=== PATIENT | female | born 1970 ===

== ENCOUNTER → 2018-05-09 | Outpatient (CLI) | payer BC | LOC: GMAJ 11:20 | PROVIDERS: ATTEND Family Medicine | DX: Z00.00 Encounter for general adult medical examination without abnormal findings (principal) ==

== ENCOUNTER → 2018-05-12 | Outpatient (CLI) | payer BC ==
--- NOTE | 2018-05-13 08:48 | US ---
EXAM DESCRIPTION: Abdomen,Complete: Ultrasound. CLINICAL HISTORY: RUQ ABD PN COMPARISON: None Available. TECHNIQUE: Transabdominal scannin-dimensional and Doppler modes. FINDINGS: Gallbladder: Multiple gallstones with acoustic shadowing making it difficult to see the dependent aspect. Normal wall thickness 1.4 mm. No fluid around the wall. Nontender with transducer pressure.. Common bile duct: 6 mm caliber upper normal limits. Liver: Septated or multi compartment anechoic cyst in the right lobe of the liver near the dome and subcapsular, measuring 7.0 x 5.4 x 4.7 cm. Change axis right lobe 14 cm. Normal echogenicity. No intrahepatic biliary dilatation. Normal caliber of the portal vein with hepatopedal flow. Smooth capsule. Pancreas: Normal size and echogenicity. Duct not seen.. Abdominal aorta: Normal caliber from the proximal segment to the distal bifurcation. IVC: visualized; normal caliber. Spleen normal echogenicity; long axis measurement is 10.4 cm. Right kidney: 10.1 cm long axis. Midrenal cortical thickness 13 mm. Normal echogenicity. No hydronephrosis or perinephric edema.. Left kidney: 9.5 cm long axis. Midrenal cortical thickness 11 mm. Normal echogenicity and no hydronephrosis or perinephric edema.. IMPRESSION: 1. Cholelithiasis with no gallbladder wall thickening or tenderness. Common bile duct caliber upper normal limits. 2. Liver unremarkable except for 7 cm multicompartment or loculated cyst in the right lobe subcapsular dome. Normal duct size and vascularity. Smooth capsule with no ascites. Normal ultrasound of the pancreas. 3. Spleen and right kidney are unremarkable. Minimal thinning of the left renal cortex. Bilateral kidneys are negative for other findings. Electronically signed by: Davion Falcon MD 05/13/2018 8:47 AM ENTRY DRIVER OPERATOR
--- NOTE | 2018-05-13 08:58 | US ---
EXAM DESCRIPTION: Pelvic,Non-OB CLINICAL HISTORY: INTRA-ABD AND PELVIC SWELLING, MASS AND LUMP. LMP unknown. COMPARISON: Ultrasound abdomen on the same visit. TECHNIQUE: Transcutaneous scanning through the urine filled bladder. Endovaginal scanning. Broussard-scale and Doppler modes. FINDINGS: Uterus 14.6 x 10.7 x 8.2. cm. Endometrial thickness 12 mm. The myometrium appears heterogeneous. Large hypoechoic mass on the right measuring 12.3 x 5.0 x 8.4 cm. Second heterogeneous mass measures 1.5 x 1.3 x 0.9 cm. The uterus is not retroverted. Cervix unremarkable. Cul-de-sac contains trace fluid. Right ovary 2.3 x 2.3 x 1.7 cm. Estimated volume. Normal waveform and color Doppler vascularity. No follicles or cysts. No adnexal mass or free fluid. Left ovary 2.6 x 1.7 x 1.5 cm. Normal waveform and color Doppler vascularity. 1.5 cm follicle, no cysts. No adnexal mass or free fluid. IMPRESSION: 1. Markedly enlarged uterus in normal position. 2 large fibroids measuring 12 cm and 1.5 cm. Endometrial thickening. Trace amount of fluid in the cul-de-sac. Consider gynecology surgical consult. 2. Left ovary not enlarged. 1.5 cm follicle. Right ovary unremarkable. Bilateral ovarian vascularity negative. No ultrasound imaging follow-up of ovarian follicle recommended per [employer] [facility] Best Practice guidelines. . Electronically signed by: Davion Falcon MD 05/13/2018 8:57 AM CIVIL RIGHTS INVESTIGATOR
== END ==
LOC: US 08:33
PROVIDERS: ATTEND Family Medicine
DX: R19.00 Intra-abdominal and pelvic swelling, mass and lump, unspecified site (principal); R10.11 Right upper quadrant pain; N85.2 Hypertrophy of uterus